=== PATIENT | male | born 1960 | race Caucasian/White ===

== ENCOUNTER → 2016-07-07 | Outpatient (CLI) | payer OTHER ==
[~2016-07-07] VITALS: Ht 167.6 cm; Wt 80.7 kg
[~2016-07-07] MED LIST: CATAPRES0.2 MG PO; COZAAR25 MG PO; LIPITOR20 M1 PO; LOPRESSOR50 MG PO; LOSARTAN-HCTZ1 EAC1 PO; NEURONTIN600 MG PO; XARELTO20 MG PO; ZOLOFT100 MG PO; ZOLPIDEM TART12.5 MG PO
--- NOTE | ~2016-07-07 | OR ---
PATIENT'S NAME: LEVI COLEMAN [facility] AGE: 55 Y [address] ROOM: [place] [address] LOCATION: [facility] [place] ADMIT DATE: 07/07/2016 OR/Procedure Report DISCHARGE DATE: FAMILY PHYSICIAN: Shun Manrique MD ATTENDING PHYSICIAN: Levi Henriquez SURGEON: Levi Henriquez MD EXTRUDER TENDER: DATE OF PROCEDURE: 07/07/2016 Corrected patient account information per operations 07/29/16 AO INDICATIONS: Atrial fibrillation, refractory to drug therapy. DESCRIPTION OF PROCEDURE: The patient was brought to the preop suite in the fasting state and prepped and draped in normal manner. An 80 mg of propofol was administered through the nurse senior care assistant. Once adequate levels of sedation were obtained, 200 joules was delivered with prompt nondenominational of sinus rhythm. A 12-lead EKG is pending. CONCLUSION: 1. Successful nondenominational to normal sinus rhythm using DC cardioversion. 2. A 12-lead EKG pending at the time of this dictation. I would like to thank Dr. Manrique for the opportunity to participate in the care of Mr. Coleman. LEVI HENRIQUEZ MD DJM/modl /[id number] Corrected patient account information per operations 07/29/16 AO d: 07/25/16 1201 t: 08/12/16 0817, OPERATIVE SUMMARY
== END | disposition disaster alternative care site (69) ==
LOC: GPOC 07-04 13:00 → GSDC 07:51 → GPOC 08:30
DX: I48.91 Unspecified atrial fibrillation (principal); R06.02 Shortness of breath; R53.83 Other fatigue; R00.1 Bradycardia, unspecified; R94.31 Abnormal electrocardiogram [ECG] [EKG]
CPT/HCPCS: J2001; J7030